=== PATIENT | male | born 1960 | race Caucasian/White ===

== ENCOUNTER → 2016-05-21 | Outpatient (CLI) | payer OTHER ==
--- NOTE | 2016-05-21 19:11 | DIREP ---
PROCEDURE:XRAY SPINE LUMBAR MIN 4 VWS COMPARISON:None. INDICATIONS:BACK PN FINDINGS: ALIGNMENT:Normal. VERTEBRAE:Vertebral body heights are maintained. Dorsal facet arthropathy is present. DISK SPACES:Normal. SPONDYLOLISTHESIS:None. SACROILIAC JOINTS:Normal. OTHER:The oblique views demonstrate early bony encroachment on the bilateral neural foramen at L4 and L5. CONCLUSION: Degenerative changes of the lumbar spine. If clinical suspicion for neural impingement persist, consider MRI Dictated by: Samuel Ravi M.D. on 05/21/2016 at 07:09 PM
--- NOTE | 2016-05-21 19:11 | DIREP ---
PROCEDURE:XRAY SPINE THORACIC 3 VWS COMPARISON:None. INDICATIONS:BACK PN the cervicothoracic junction are provided. FINDINGS: ALIGNMENT:Normal. VERTEBRAE:Vertebral body heights are maintained. Minimal ventral spondylosis of the ventral thoracic spine. DISK SPACES:Normal. OTHER:Normal. CONCLUSION:Mild degenerative changes of the thoracic spine Dictated by: Samuel Ravi M.D. on 05/21/2016 at 07:10 PM
--- NOTE | 2016-05-21 19:13 | DIREP ---
PROCEDURE:XRAY SHOULDER MIN 2 VWS-RT COMPARISON:None. INDICATIONS:SHOULDER PN FINDINGS: BONES:Normal. 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 There is a small downward projecting osteophyte from the undersurface of the distal right clavicle. No evidence for dislocation. SOFT TISSUES:Normal. OTHER:Normal. CONCLUSION:Arthrosis of the right acromioclavicular joint. The patient may be predispose to impingement like symptoms Dictated by: Samuel Ravi M.D. on 05/21/2016 at 07:11 PM
== END | disposition home or self-care (01) ==
LOC: RAD 17:49
PROVIDERS: ATTEND Nurse Practitioner Family
DX: M47.896 Other spondylosis, lumbar region (principal); M47.894 Other spondylosis, thoracic region; M19.011 Primary osteoarthritis, right shoulder
CPT/HCPCS: 72070; 72110; 73030-RT